=== PATIENT | female | born 1980 ===

== ENCOUNTER 2023-07-11 10:28 | Emergency (ER) | payer SELFPAY ==
--- NOTE | 2023-07-11 10:30 | ED.CHESTPAIN ---
HPI - Chest Pain General Chief Complaint: Upper Respiratory Infection Stated Complaint: Chest Pain Time Seen by Provider: 07/11/23 10:29 Source: patient Mode of arrival: ambulatory Limitations: no limitations History of Present Illness HPI narrative: Genesis is a 43-year-old female patient presenting to the clinic today with complaints left-sided chest pain that started around 8-830 this morning. She reports pain is sharp in nature to the left upper chest. Also having some associated shortness of breath. Denies any worsening of pain upon inspiration/expiration. Denies recently lifting anything heavy or working out. History of hyperlipidemia. Was on cholesterol medication but discontinued this herself. She is a nonsmoker. No known family history of cardiac issues. Related Data Home Medications Medication Instructions Recorded Confirmed No Home Medications 07/11/23 07/11/23 Allergies Allergy/AdvReac Type Severity Reaction Status Date / Time No Known Allergies Allergy Verified 07/11/23 10:36 Review of Systems Review of Systems: Pertinent positives per HPI. Patient denies any fever, chills, rash, headache, visual changes, dizziness, cough, runny nose, sore throat, palpitations, nausea, vomiting, diarrhea, constipation, abdominal pain, or any urinary issues. PMFSH Comments At the time of my signature, I reviewed and agree with the nursing past medical, surgical, social, and family history. There is no relevant family history pertinent to the patient complaint. Exam Narrative: General: Well-developed, well nourished, in no apparent distress Head: Normocephalic, atraumatic. Cardio: Regular rate and rhythm, s1 and s2 normal, no murmur appreciated. Resp: Clear to auscultation bilaterally, no rhonchi, rales, wheezing or rubs. Extremities: No deformity, no edema, no cyanosis, capillary refill less than 2 seconds, peripheral pulses palpable and strong. Integumentary: [place], warm, and dry, intact without lesion, no rashes. Course Course Emergency Course: Portions of this record may have been created with voice recognition software. Level of Care: Express Care Visit Vital Signs Vital signs: Vital signs reviewed MDM - Chest Pain MDM Narrative Medical decision making narrative: At the time of visit patient is resting comfortably on the exam table. Patient appears to be nontoxic. EKG: EKG shows normal sinus rhythm with heart rate of 79 beats per minute without ST elevation or depression, no T-wave inversions. [place] interval is 130 milliseconds, QRS duration 75 milliseconds, QT-QTC is 361-3 her 95 milliseconds, P-R-T axis is 79 55 44 Plan: Recommend transfer to the emergency department for further evaluation to rule out non-STEMI. Patient declined and would like to have follow-up with her PCP on Sunday of next week as this is already scheduled. AMA was signed after risk and benefits were discussed. Patient voiced understanding. Recommend patient follow-up with her PCP as soon as possible-call office today to get blood work completed if possible. If chest pain worsens go to the emergency room immediately. Supportive measures were discussed with the patient and they voiced understanding discharge instructions and agrees to treatment plan. Strict return precautions reviewed. Patient got a hold of primary care office while in the clinic today and they are willing to order blood work today for the patient. Differential Diagnosis Differential diagnosis: Likely stable angina, unstable angina pectoris, atypical chest pain, st elevation myocardial infarction, costochondritis, chest pain and other (Muscle pain) ECG Data EKG #1: Attestation: I personally reviewed and interpreted this ECG as follows: ECG completion date: 07/11/23 ECG completion time: 10:46 Prior ECG tracings: not available for review Interpretation: EKG shows normal sinus rhythm with heart rate of 79 beats per aidee
[2023-07-11 10:49] VITALS: BP 115/78; PULSE 78; RESP 16; TEMP 36.6; O2SAT 100
--- NOTE | 2023-07-11 10:49 | ECG_ITS ---
Measurements Intervals [place] Rate: 79 P: 79 [place]: 130 QRS: 55 QRSD: 75 T: 44 QT: 361 QTc: 414 Interpretive Statements SINUS RHYTHM NONSPECIFIC T-WAVE ABNORMALITY ABNORMAL ECG NO PREVIOUS ECG AVAILABLE FOR COMPARISON Electronically Signed On 07-11-2023 11:55:02 TEST CONSULTANT by Dawson Vann M.D.
== END 2023-07-11 11:04 | disposition left against medical advice (07) ==
PROVIDERS: Emergency Provider Nurse Practitioner Family
DX: R07.89 Other chest pain (principal); R06.02 Shortness of breath; R94.31 Abnormal electrocardiogram [ECG] [EKG]; E78.5 Hyperlipidemia, unspecified
CPT/HCPCS: 93005; 99213; G0463